=== PATIENT | female | born 1960 | race Caucasian/White ===

== ENCOUNTER → 2023-04-06 13:45 | Outpatient (REF) | payer BC, SELFPAY ==
[2023-04-06 14:27] LABS: % Basophils 1.9 % (0-2); % Eosinophils 2.9 % (0-6); % Immature Granulocytes 0.3 % (0-0.5); % Lymphocytes 42.4 % (20.5-51.1); % Monocytes 8.8 % (1.7-9.3); % Neutrophils 43.7 % (42.2-75.2); Absolute Basophils 0.1 10^3/uL (0-0.2); Absolute Eosinophils 0.2 10^3/uL (0-0.7); Absolute Lymphocytes 2.5 10^3/uL (1.2-3.4); Absolute Monocytes 0.5 10^3/uL (0.1-0.6); Absolute Neutrophils 2.5 10^3/uL (1.4-6.5); Hematocrit 36.4 % (37.0-47.0); Mean Corpuscular Hgb 32.3 pg (27.0-31.0); Mean Corpuscular Volume 98.1 fL (81.0-99.0); Mean Platelet Volume 10.1 fL (7.4-10.4); Nucleated Red Blood Cells % 0 %; Platelet Count 332 10^3/uL (130-400); Red Blood Cell Count 3.71 10^6/uL (4.20-5.40); Red Cell Dist. Width 12.7 % (11.5-14.5); White Blood Cell Count 5.8 10^3/uL (4.8-10.8)
== END ==
LOC: REG 13:45
PROVIDERS: ATTENDING PHYSICIAN Surgery; FAMILY PHYSICIAN Internal Medicine
DX: K35.201 Acute appendicitis with generalized peritonitis, with perforation, without abscess (principal); R10.32 Left lower quadrant pain
CPT/HCPCS: 36415; 85025

== ENCOUNTER 2023-04-08 09:33 | Emergency (ER) | payer BC, SELFPAY ==
[2023-04-08 09:35] VITALS: BP 146/97
[2023-04-08 09:46] VITALS: BMI 22.9
[2023-04-08 10:00] VITALS: BP 147/89
--- NOTE | 2023-04-08 10:04 | ED.GENMED ---
History of Present Illness
General
Chief Complaint: Abdominal Pain
Time Seen by Provider: 04/08/23 09:40
Travel History
Have you had any contact with someone who has COVID-19?: No
Do you have any symptoms of coronavirus? Fever > 100 degrees, chills, cough, shortness of breath, sore throat, loss of taste or smell, muscle aches, or headache?: No
History of Present Illness
History of Present Illness:
62-year-old female presents the emergency department with a complaint of left lower quadrant abdominal pain and bloody stools over the past 2 to 3 days. Patient is status post lap appendectomy with perforated appendicitis with feculent peritonitis
on March 15, was treated with antibiotics, did have indwelling WILLIE drain at discharge. Saw her surgeon earlier this week due to increasing pain and was advised to get an outpatient CT scan however she was unable to schedule this. She reports
fevers or chills, denies any nausea or vomiting. Has had blood-tinged stools on several occasions for the past few days with increasing left lower quadrant pain.
Past History
Past History
ED Past Medical History: Other (N/A)
Social History
Tobacco: Non-smoker
Living: with family
Employment: Employed
Review of Systems
Review of Systems
Allergies reviewed?: Yes
All Other Systems: ROS reviewed and negative except as documented in HPI and ROS
Phy Exam
Physical Exam
Physical Exam:
GEN: Well appearing, NAD, WDWN
HEENT: Oral mucosa moist, no scleral icterus
Cardiac: Regular rate
Lung: No respiratory distress, no tachypnea
Abdomen: Laparoscopic incision sites are well-healed with no dehiscence or erythema. Abdomen is diffusely soft however tender to all 4 quadrants, no rigidity
MSK: No gross deformity or injuries
Skin: Good color, no pallor or jaundice, no rashes
Neuro: AO x3, moves all extremities freely
Psych: Calm, cooperative
Course
Orders/Labs/Results
Orders:
Orders
04/08/23 10:03
CT Abd/Pel (IV only)-DH only Urgent
Comment:
Reason For Exam: LLQ pain, recent perf appy
Acetaminophen 1000MG/100Ml [Ofirmev] 1,000 mg in 100 ml IV ONCE
Acetaminophen IV Indication:: ED Narcotic Naive Pt-ONCE
04/08/23 10:10
Complete Blood Count/With Diff Urgent
Comprehensive Metabolic Panel Urgent
Lactic Acid Urgent
Prothrombin Time Urgent
Blood Culture Q30M
TAMRA Source: Blood/Venous
Specimen Description:
Blood Culture Q30M
TAMRA Source: Blood/Venous
Specimen Description:
04/08/23 12:27
Urinalysis Reflex To Culture Urgent
Date Specimen was Collected: 04/08/23
Time Specimen was Collected: 12:22
Abnormal Lab Results
04/08/23
10:10
RBC 3.75 L 10^6/uL
(4.20-5.40)
Hct 36.4 L %
(37.0-47.0)
MCH 32.3 H pg
(27.0-31.0)
MPV 10.7 H fL
(7.4-10.4)
Chloride 110 H mmol/L
(98-107)
BUN 18 H mg/dl
(7-17)
04/08/23 10:10
04/08/23 10:10
Vital Signs
Initial and Last Documented VS:
Initial Vital Signs
Temp Pulse Resp BP Pulse Ox
98.4 F 94 18 146/97 99
04/08/23 09:35 04/08/23 09:35 04/08/23 09:35 04/08/23 09:35 04/08/23 09:35
Last Documented Vital Signs
Temp Pulse Resp BP Pulse Ox
98.4 F 94 18 119/86 98
04/08/23 09:35 04/08/23 09:35 04/08/23 09:35 04/08/23 12:00 04/08/23 13:30
MDM/Problems Addressed
MDM/Problems Addressed:
Unclear cause of the patient's pain. I did have the patient seen by her general surgeon who recommends we start a 10-day course of Augmentin due to some degree of inflammatory process developing on CT scan. Surgery will follow-up in 10 days for
reevaluation, ED return parameters discussed
*Critical Care Note
Total Time (30-74mins, 75-104mins- exclusive of procedures): Not Applicable
Update Note
Update Note:
1317: Dr Abraham, gen surg, at bedside to eval pt
ED Attending Note
-
Portions of this chart may have been created with voice recognition software.� Occasional wrong word or��sound alike� substitutions may have occurred due to the inherent limitations of voice recognition software.
Discharge Plan
Departure
Patient Disposition: Home (Routine Discharge)
Date of Disposition: 04/08/23
Time of Disposition: 13:48
Patient with high blood pressure during this ER visit?: No
Discharge Problem:
Abdominal pain
Instructions: Abdominal Pain
Prescriptions:
New
amoxicillin-pot clavulanate 875-125 mg tablet
1 tab PO BID 10 Days Qty: 20 0RF
fluconazole 150 mg tablet
150 mg PO Q3D Qty: 3 0RF
No Action
cyanocobalamin (vitamin B-12) 100 MCG tablet
100 mcg PO DAILY
albuterol sulfate 2.5 MG/3 ML solution for nebulization
2.5 mg inhalation R Q4HPRN PRN (Reason: wheezing)
topiramate 25 MG tablet
75 mg PO HS
magnesium 250 MG tablet
500 mg PO BID
celecoxib [Celebrex] 200 mg Capsule
200 mg PO BID
clonazepam 0.5 mg Tablet
0.5 mg PO HS
Patient Comments:
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
melatonin 3 mg Tablet
6 mg PO HS
hydroxychloroquine [Plaquenil] 200 mg Tablet
300 mg PO DAILY
albuterol sulfate [ProAir HFA] 90 mcg/actuation Hfa Aerosol Inhaler
2 puff INHALATION R Q6HPRN PRN (Reason: sob)
turmeric 400 mg Capsule
400 mg PO BID
Nurtec ODT 75 mg Tablet,Disintegrating
75 mg PO Q48H
okhvipzdrz-agowjdx-xkeqnlan 50-325-40 mg Capsule
1 cap PO DAILYPRN PRN (Reason: mirgraine)
Patient Comments:
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
levothyroxine [Synthroid] 112 mcg Tablet
112 mcg PO MOTUWETHFRSA
Rx Instructions:
03/15/23- PATIENT MUST USE HER OWN BRAND AND HAS IT WITH HER!!
tramadol 50 mg tablet
25 - 50 mg PO Q6HPRN PRN (Reason: severe pain/breakthrough pain) Qty: 10 0RF
amoxicillin-pot clavulanate [amoxicillin-pot clavulanate] 875-125 mg tablet
1 tab PO Q12 Qty: 11 0RF
tranexamic acid 650 mg Tablet
1,300 mg PO Q8H Qty: 1 0RF
Rx Instructions:
take as per your assembler arranger instructions
Referrals:
Cheri Zacarias MD [Family Provider] -
Vicente Abraham MD [Active] -
Interventions
Interventions:
*Risk Screen - Suicide Last Done: 04/08/23 09:35
*General Assessment Last Done: 04/08/23 09:35
*Neglect/Abuse Screening Last Done: 04/08/23 09:35
ED- Fall Risk Assessment Last Done: 04/08/23 09:46
*ED COVID-19 Vaccine History Last Done: 04/08/23 09:46
*Nursing Disposition Last Done: 04/08/23 14:09
VK-Rtwmds-Jpplwxclhf Assessment Last Done: 04/08/23 09:46
ED- Cardiac Assessment Last Done: 04/08/23 09:46
ED- Pulmonary Assessment Last Done: 04/08/23 09:46
Discharge Date and Time
Discharge Date/Time: 04/08/23 14:09
[2023-04-08 10:26] LABS: % Eosinophils 2.9 % (0-6); % Immature Granulocytes 0.4 % (0-0.5); % Lymphocytes 42.3 % (20.5-51.1); % Monocytes 8.4 % (1.7-9.3); Absolute Basophils 0.1 10^3/uL (0-0.2); Absolute Eosinophils 0.2 10^3/uL (0-0.7); Absolute Lymphocytes 2.3 10^3/uL (1.2-3.4); Absolute Monocytes 0.5 10^3/uL (0.1-0.6); Absolute Neutrophils 2.4 10^3/uL (1.4-6.5); Hematocrit 36.4 % (37.0-47.0); Hemoglobin 12.1 g/dL (12.0-16.0); Mean Corp Hgb Conc. 33.2 g/dL (33.0-37.0); Mean Corpuscular Hgb 32.3 pg (27.0-31.0); Mean Corpuscular Volume 97.1 fL (81.0-99.0); Mean Platelet Volume 10.7 fL (7.4-10.4); Nucleated Red Blood Cells % 0 %; Platelet Count 291 10^3/uL (130-400); Red Blood Cell Count 3.75 10^6/uL (4.20-5.40); Red Cell Dist. Width 12.5 % (11.5-14.5); White Blood Cell Count 5.5 10^3/uL (4.8-10.8)
[2023-04-08] MEDS: OFIRMEV 100 IV (10:30)
[2023-04-08 10:39] LABS: INR 1.02; PT 13.5 Sec (11.4-14.6)
[2023-04-08 10:50] LABS: ALT (SGPT) 28 U/L (0-35); AST (SGOT) 27 U/L (14-36); Albumin 4.1 g/dl (3.5-5.0); Alkaline Phosphatase 67 U/L (38-126); Blood Urea Nitrogen 18 mg/dl (7-17); Calcium 9.4 mg/dl (8.4-10.2); Carbon Dioxide 22 mmol/L (22-30); Chloride 110 mmol/L (98-107); Estimated Creatinine Clearance 65 ml/min; Glucose 88 mg/dl (70-99); Potassium 4.2 mmol/L (3.5-5.1); Sodium 140 mmol/L (135-145); Total Bilirubin 0.6 mg/dl (0.2-1.3); eGFR > 60.00
[2023-04-08 11:15] VITALS: BP 136/84
[2023-04-08 12:00] VITALS: BP 119/86
[2023-04-08 13:18] LABS: Urine Albumin Negative (Neg - Trace); Urine Bilirubin Negative (Negative); Urine Character Clear (Clear); Urine Color Yellow; Urine Glucose Negative (Negative); Urine Ketone Negative (Negative); Urine Leukocyte Negative (Negative); Urine Nitrite Negative (Negative); Urine Occult Blood Negative (Negative); Urine Specific Gravity 1.005 (<1.030); Urine Urobilinogen Negative (Neg - 1+)
--- NOTE | 2023-04-08 16:19 | CON.GS ---
Consultation
-
Date/Time Consultation Requested: 04/08/2023 11 AM
Date/Time Consultation Performed: 04/08/2023 1 PM
Requesting Provider: Emergency department
Performing Provider: Dr. Abraham
Reason for Consultation: Abdominal pain
Medical History
-
Chief Complaint: Left lower quadrant abdominal pain, bright red blood per rectum
History of Present Illness:
This is a 62-year-old female status post laparoscopic appendectomy for perforated appendicitis and local feculent peritonitis on 03/15/2023. She was discharged on 03/19/2023 without a drain and a course of antibiotics for 10 days which she completed.
Overall she said that she was doing quite well until she began having left lower quadrant pain this past Wednesday. She actually saw me in clinic this past Wednesday and overall was looking okay. She denied any fevers or chills. No concerns at her
wound sites, and she was only mildly tender to palpation in the left lower quadrant. Given her history there is certainly risk of an intra-abdominal abscess so we plan to get a CT scan for her unfortunately over the past few days she developed some
bright red blood per rectum and given that her left lower quadrant pain had not changed in character she presented to emergency department for further evaluation. Here her vital signs are stable, her lab work is unremarkable And a CT scan of the
abdomen demonstrated no focal collection though there was some mild inflammation noted in the right lower and left lower quadrants which could be simple postsurgical changes versus an evolving infection. With regards to her bright red blood per
rectum, she denies any previous episodes. She does not have any history of hemorrhoids. She does endorse and has pictures of fairly normal-appearing brown stool with red streaks on it concerning for hemorrhoidal bleed.
Past Medical History
Past Medical History: Reviewed & Noncontributory
Past Surgical History: Appendectomy
Social History
Tobacco: Non-Smoker
Family History
Family History: Reviewed & Not Pertinent
Allergies / Home Medications
Allergy/AdvReac Type Severity Reaction Status Date / Time
adalimumab [From Humira] Allergy Hives Verified 04/08/23 09:34
adhesive tape Allergy skin Verified 04/08/23 09:34
symptoms -
redness,etc.
aspirin Allergy history of Verified 04/08/23 09:34
stomach
ulcers
cat dander Allergy Unknown Verified 04/08/23 09:34
gluten Allergy Diarrhea Verified 04/08/23 09:34
house dust mite Allergy Unknown Verified 04/08/23 09:34
lactose Allergy stomach Verified 04/08/23 09:34
problems
mold Allergy Unknown Verified 04/08/23 09:34
morphine Allergy nausea,vomi Verified 04/08/23 09:34
ting,pruiti
s
NSAIDS (Non-Steroidal Allergy history of Verified 04/08/23 09:34
Anti-Inflamma stomach
ulcers
Salicylates * Allergy history of Verified 04/08/23 09:34
stomach
ulcers
scallops Allergy Unknown Verified 04/08/23 09:34
scopolamine Allergy Hives Verified 04/08/23 09:34
tetracycline Allergy Hives Verified 04/08/23 09:34
tree and shrub pollen Allergy Unknown Verified 04/08/23 09:34
wheat Allergy Unknown Verified 04/08/23 09:34
opiods sensitivity Allergy nausea/vomiting;itching Uncoded 03/15/23 07:56
(can take
if also
given an
antiemeti
Medication Instructions Recorded Confirmed Type
albuterol sulfate 2.5 mg/3 mL 2.5 mg inhalation R Q4HPRN PRN 04/20/15 03/15/23 History
(0.083 %) solution for nebulization wheezing
cyanocobalamin (vitamin B-12) 100 100 mcg PO DAILY Supplement 04/20/15 03/15/23 History
mcg tablet
magnesium 250 mg tablet 500 mg PO BID Supplement 04/20/15 03/15/23 History
topiramate 25 mg tablet 75 mg PO HS Mental Health/Anxiety 04/20/15 03/15/23 History
albuterol sulfate 90 mcg/actuation 2 puff inhalation R Q6HPRN PRN sob 03/15/23 03/15/23 History
aerosol inhaler (ProAir HFA)
grtlhbiiwl-heupamt-hjeuaxse 50 1 cap PO DAILYPRN PRN mirgraine 03/15/23 03/15/23 History
mg-325 mg-40 mg capsule
celecoxib 200 mg capsule (Celebrex) 200 mg PO BID Anti-Inflammatory 03/15/23 03/15/23 History
clonazepam 0.5 mg tablet 0.5 mg PO HS Sleep 03/15/23 03/15/23 History
hydroxychloroquine 200 mg tablet 300 mg PO DAILY Autoimmune Disorder 03/15/23 03/15/23 History
(Plaquenil)
levothyroxine 112 mcg tablet 112 mcg PO MOTUWETHFRSA Thyroid 03/15/23 03/15/23 History
(Synthroid)
melatonin 3 mg tablet 6 mg PO HS Sleep 03/15/23 03/15/23 History
rimegepant 75 mg disintegrating 75 mg PO Q48H Migraine 03/15/23 03/15/23 History
tablet (Nurtec ODT)
turmeric 400 mg capsule 400 mg PO BID Supplement 03/15/23 03/15/23 History
amoxicillin 875 mg-potassium 1 tab PO Q12 antibiotic #11 tabs 03/19/23 Rx
clavulanate 125 mg tablet
tramadol 50 mg tablet 25 - 50 mg PO Q6HPRN PRN severe 03/19/23 Rx
pain/breakthrough pain #10 tabs
tranexamic acid 650 mg tablet 1,300 mg PO Q8H #1 tab 03/19/23 Rx
amoxicillin 875 mg-potassium 1 tab PO BID 10 days #20 tabs 04/08/23 Rx
clavulanate 125 mg tablet
fluconazole 150 mg tablet 150 mg PO Q3D 3 doses #3 tabs 04/08/23 Rx
Review of Systems
-
All other systems: Negative unless noted
A 10 point review of systems was completed, and was negative except as per HPI.
Physical Exam
Vital Signs
Temp Pulse Resp BP Pulse Ox
98.4 F 94 18 119/86 98
04/08/23 09:35 04/08/23 09:35 04/08/23 09:35 04/08/23 12:00 04/08/23 13:30
04/07/23 04/08/23 04/09/23
06:59 06:59 06:59
Actual Weight 60.6 kg
Body Mass Index (BMI) 22.9
Lab Results
04/08/23 10:10
04/08/23 10:10
WBC 5.5 10^3/uL (4.8-10.8) 04/08/23 10:10
Hgb 12.1 g/dL (12.0-16.0) 04/08/23 10:10
Hct 36.4 % (37.0-47.0) L 04/08/23 10:10
Plt Count 291 10^3/uL (130-400) 04/08/23 10:10
Abs Immat Gran (auto) 0.0 10^3/uL (0-0.05) 04/08/23 10:10
Neutrophils % 44.0 % (42.2-75.2) 04/08/23 10:10
Physical Exam
General: Well Developed
HEENT: Normocephalic
Respiratory: Non Labored Respirations
GI: Soft, Non Distended and Tender (Minimally tender in the left lower quadrant.)
Rectal: Brown and Hemorrhoids (1 small, nonbleeding hemorrhoid was identified.)
Neuro: Awake, Alert and Oriented
Psych: Calm
Data Reviewed
-
CT Scan: Image Personally Visualized and interpreted, Report Reviewed by me, Discussed with Physician and Discussed with Patient
Labs: Labs Reviewed by me, Discussed with Physician and Discussed with Patient
Total Time Spent with Patient (in minutes): 25
Assessment / Plan
-
This is a 62-year-old female status post laparoscopic appendectomy on 03/15/2023 for perforated appendicitis with purulent peritonitis and local feculent peritonitis who initially was doing well but now has left lower quadrant pain. Vitals and exam
reassuring as is her blood work. CT scan also fairly unremarkable though there is some inflammation noted in the bilateral lower quadrants which could be normal postoperative changes versus an evolving infection.
Plan
Would recommend a short course of antibiotics 10 days Augmentin plus Diflucan as she had a bad yeast infection after her first course of antibiotics.
P.o. hydration, stool softeners for her hemorrhoids. No active bleeding currently, and hemoglobin stable. She should get a repeat colonoscopy in the near future.
I will have her follow-up with me in 1 to 2 weeks after her antibiotic course.
Plan of care reviewed with patient and friend who are both agreeable to the plan described above.
No acute general surgery intervention warranted, dispo per ED.
== END 2023-04-08 14:09 | disposition home or self-care (01) ==
LOC: EMR 09:33
PROVIDERS: Physician Assistant; EMERGENCY PHYSICIAN Student in an Organized Health Care Education/Training Program; FAMILY PHYSICIAN Internal Medicine
DX: R10.32 Left lower quadrant pain (principal); K92.1 Melena
CPT/HCPCS: 99284; 74177; 80053; 81003; 83605; 85025; 85610; 87040; Q9967

== ENCOUNTER → 2023-04-21 09:49 | Outpatient (REF) | payer BC, SELFPAY | LOC: HWRAD 09:49 | PROVIDERS: ATTENDING PHYSICIAN Surgery; FAMILY PHYSICIAN Internal Medicine | DX: R10.32 Left lower quadrant pain (principal); K35.201 Acute appendicitis with generalized peritonitis, with perforation, without abscess | CPT/HCPCS: 74177; Q9967 ==

== ENCOUNTER → 2023-05-07 11:11 | Outpatient (REF) | payer BC, SELFPAY ==
[2023-05-07 11:55] LABS: % Basophils 1.9 % (0-2); % Eosinophils 3.8 % (0-6); % Immature Granulocytes 0.2 % (0-0.5); % Lymphocytes 45.2 % (20.5-51.1); % Monocytes 7.4 % (1.7-9.3); % Neutrophils 41.5 % (42.2-75.2); Absolute Basophils 0.1 10^3/uL (0-0.2); Absolute Eosinophils 0.2 10^3/uL (0-0.7); Absolute Lymphocytes 2.4 10^3/uL (1.2-3.4); Absolute Monocytes 0.4 10^3/uL (0.1-0.6); Absolute Neutrophils 2.2 10^3/uL (1.4-6.5); Hematocrit 35.8 % (37.0-47.0); Hemoglobin 11.7 g/dL (12.0-16.0); Mean Corp Hgb Conc. 32.7 g/dL (33.0-37.0); Mean Corpuscular Hgb 31.7 pg (27.0-31.0); Mean Platelet Volume 10.5 fL (7.4-10.4); Nucleated Red Blood Cells % 0 %; Platelet Count 245 10^3/uL (130-400); Red Blood Cell Count 3.69 10^6/uL (4.20-5.40); Red Cell Dist. Width 11.8 % (11.5-14.5); White Blood Cell Count 5.3 10^3/uL (4.8-10.8)
[2023-05-07 12:31] LABS: ALT (SGPT) 20 U/L (0-35); AST (SGOT) 21 U/L (14-36); Albumin 3.9 g/dl (3.5-5.0); Alkaline Phosphatase 54 U/L (38-126); Blood Urea Nitrogen 30 mg/dl (7-17); Calcium 9.4 mg/dl (8.4-10.2); Carbon Dioxide 25 mmol/L (22-30); Chloride 105 mmol/L (98-107); Glucose 95 mg/dl (70-99); HDL Cholesterol 60 mg/dl; LDL Cholesterol, Calculated 137 mg/dl; Sodium 140 mmol/L (135-145); Total Bilirubin 0.3 mg/dl (0.2-1.3); Total Cholesterol 214 mg/dl (50-199); Total Protein 6.7 g/dl (6.3-8.2); Triglyceride 86 mg/dl (10-149); Very Low Density Lipoprotein 17 mg/dl (0-30); eGFR > 60.00
[2023-05-07 13:15] LABS: Free T4 1.48 ng/dl (0.78-2.19)
[2023-05-07 13:29] LABS: TSH 1.78 uIU/ml (0.47-4.68)
== END ==
LOC: REG 11:11
PROVIDERS: ATTENDING PHYSICIAN Physician Assistant Medical; OTHER PHYSICIAN Internal Medicine Endocrinology, Diabetes & Metabolism; OTHER PHYSICIAN Internal Medicine Hematology; OTHER PHYSICIAN Surgery
DX: Z00.00 Encounter for general adult medical examination without abnormal findings (principal); E03.9 Hypothyroidism, unspecified
CPT/HCPCS: 36415; 80053; 80061; 84439; 84443; 85025

== ENCOUNTER 2023-06-03 13:59 | Emergency (ER) | payer BC, SELFPAY ==
[2023-06-03 14:05] VITALS: BP 113/94
[2023-06-03] MEDS: TORADOL 30 MG IV (16:17)
[2023-06-03 16:26] LABS: Urine Albumin Negative (Neg - Trace); Urine Bilirubin Negative (Negative); Urine Character Clear (Clear); Urine Color Yellow; Urine Glucose Negative (Negative); Urine Ketone 1+ (Negative); Urine Leukocyte Negative (Negative); Urine Nitrite Negative (Negative); Urine Occult Blood Negative (Negative); Urine Specific Gravity 1.025 (<1.030); Urine Urobilinogen Negative (Neg - 1+)
[2023-06-03 16:28] LABS: % Basophils 1.3 % (0-2); % Eosinophils 1.8 % (0-6); % Immature Granulocytes 0.2 % (0-0.5); % Lymphocytes 39.9 % (20.5-51.1); % Monocytes 7.1 % (1.7-9.3); % Neutrophils 49.7 % (42.2-75.2); Absolute Basophils 0.1 10^3/uL (0-0.2); Absolute Eosinophils 0.1 10^3/uL (0-0.7); Absolute Lymphocytes 2.4 10^3/uL (1.2-3.4); Absolute Monocytes 0.4 10^3/uL (0.1-0.6); Hematocrit 39.7 % (37.0-47.0); Hemoglobin 13.2 g/dL (12.0-16.0); Mean Corp Hgb Conc. 33.2 g/dL (33.0-37.0); Mean Corpuscular Hgb 31.9 pg (27.0-31.0); Mean Corpuscular Volume 95.9 fL (81.0-99.0); Mean Platelet Volume 10.1 fL (7.4-10.4); Nucleated Red Blood Cells % 0 %; Platelet Count 265 10^3/uL (130-400); Red Blood Cell Count 4.14 10^6/uL (4.20-5.40); Red Cell Dist. Width 11.9 % (11.5-14.5); White Blood Cell Count 6.1 10^3/uL (4.8-10.8)
[2023-06-03 16:39] LABS: ALT (SGPT) 23 U/L (0-35); AST (SGOT) 21 U/L (14-36); Albumin 4.5 g/dl (3.5-5.0); Alkaline Phosphatase 63 U/L (38-126); Blood Urea Nitrogen 25 mg/dl (7-17); Carbon Dioxide 25 mmol/L (22-30); Chloride 106 mmol/L (98-107); Glucose 88 mg/dl (70-99); Potassium 3.9 mmol/L (3.5-5.1); Sodium 141 mmol/L (135-145); Total Bilirubin 0.5 mg/dl (0.2-1.3); Total Protein 7.6 g/dl (6.3-8.2); eGFR > 60.00
--- NOTE | 2023-06-03 16:47 | ED.GENMED ---
History of Present Illness
General
Chief Complaint: Abdominal Pain
Source: patient and records
Time Seen by Provider: 06/03/23 15:48
Travel History
Have you had any contact with someone who has COVID-19?: No
Do you have any symptoms of coronavirus? Fever > 100 degrees, chills, cough, shortness of breath, sore throat, loss of taste or smell, muscle aches, or headache?: No
History of Present Illness
History of Present Illness:
70-year-old female with past medical history of mitral regurgitation, previous breast cancer, status post appendiceal rupture status post appendectomy in March of this year presenting to the emergency department for evaluation of lower abdominal
pain that started over the last 3 days described to be gradually worsening in nature, initially diffuse but now worse in the left lower part of her abdomen, mildly decreased p.o. intake to both solids and liquids, unrelieved with Tylenol and
zcbb-nbs-bekmhti stool softener, sent to the emergency department by primary care physician after she had been today. Patient denies any fevers, chills, rigors, nausea, vomiting, urinary symptoms or bowel changes. States this feels different than
her previous abdominal pains in the past. She does note a visit to this ER back in April for abdominal pain with bloody stools and states that was fully resolved following course of antibiotics.
Past History
Past History
ED Past Medical History: Asthma, Cancer, GERD, Valvular disease, Hypothyroidism and Other (Migraines)
ED Past Surgical History: Appendectomy, and Other
Social History
Tobacco: Non-smoker
Alcohol: None
Drug: None
Personal: Single
Living: with family
Employment: Employed
Review of Systems
Review of Systems
All Other Systems: ROS reviewed and negative except as documented in HPI and ROS
Phy Exam
Physical Exam
Physical Exam:
GENERAL: Alert , in no apparent distress
EYE: clear conjunctiva b/l
HEAD: NCAT
ENT: mmm.
CARDIAC: Regular rate and rhythm .
LUNGS: Clear breath sounds bilaterally, no acute respiratory distress, no wheezes/rales/rhonchi
ABDOMEN: Soft, diffusely tender, no r/g, no cvat, negative Truong sign
NEUROLOGICAL: Alert and oriented
SKIN: Warm and dry, skin intact.
MUSCULOSKELETAL: well perfused.
PSYCH: Normal and appropriate interaction.
Scores
Heart Failure Risk
Heart Failure Risk Score: Not Applicable
Heart Score for Chest Pain Patients
STEMI patient?: Not applicable
Withdrawal Assessment of Alcohol
Withdrawal Assessment Completed?: Not applicable
Course
Orders/Labs/Results
Orders:
Orders
06/03/23 15:56
CT Abd/pelvis W Iv Cont Urgent
Comment:
Reason For Exam: diffuse lower abd pain, hx of appy
Ketorolac [Toradol] 30 mg IV NOW STA
06/03/23 16:12
Complete Blood Count/With Diff Urgent
Comprehensive Metabolic Panel Urgent
Lipase Urgent
Urinalysis Reflex To Culture Urgent
Date Specimen was Collected: 06/03/23
Time Specimen was Collected: 16:02
Abnormal Lab Results
06/03/23
16:12
RBC 4.14 L 10^6/uL
(4.20-5.40)
MCH 31.9 H pg
(27.0-31.0)
BUN 25 H mg/dl
(7-17)
Urine Ketones 1+ A
(Negative)
06/03/23 16:12
06/03/23 16:12
Vital Signs
Initial and Last Documented VS:
Initial Vital Signs
Temp Pulse Resp BP Pulse Ox
98.7 F 94 18 113/94 100
06/03/23 14:05 06/03/23 14:05 06/03/23 14:05 06/03/23 14:05 06/03/23 14:05
Last Documented Vital Signs
Temp Pulse Resp BP Pulse Ox
98.7 F 94 18 113/94 100
06/03/23 14:05 06/03/23 14:05 06/03/23 14:05 06/03/23 14:05 06/03/23 14:05
MDM/Problems Addressed
Differential Diagnosis Includes:
Diverticulitis, diverticulosis, pancreatitis, renal/ureteral colic, less concern for bowel obstruction
MDM/Problems Addressed:
62-year-old female sent to the emergency department by primary care provider for worsening abdominal pain, now worse in the left lower quadrant. Patient notes a history of colonoscopy but no previous history of diverticulosis found. Pain seem to
be more pronounced within the lower part of the abdomen, left greater than right. Given patient's history will obtain a CT of the abdomen pelvis. She has had 3 [address] scans done this year already with the first showing she had appendicitis. CT done
in April was without any acute complications. Will treat with Toradol initially. Reassessment following.
*Radiology
Radiology exam reviewed: radiology read reviewed
*Pulse Oximetry
Patient hypoxic: no
*Critical Care Note
Total Time (30-74mins, 75-104mins- exclusive of procedures): Not Applicable
Data Reviewed
Review of Other/Old Records Reveals: Labs, Records and Radiology Studies
Source: patient and records
Patient Management
Discussion with other providers: PCP
Escalation/DeEscalation of care consider admission/obs:
Patient CT scan shows questionable enteritis within the central and left pelvic region. It could certainly be a cause of her symptoms. She is afebrile, no leukocytosis and labs are otherwise unremarkable. Patient has been on 2 separate rounds of
antibiotics within the last 3 months or so. Overall I discussed with patient that given the lack of abnormal findings on her CT combined with her unremarkable lab work I did not feel as if she needed a third round of antibiotics and patient agreed
with this. I notified patient's primary care provider via [employer] as she had sent the patient to be further evaluated. Patient will follow-up with her primary care provider as well as her surgeon. She is aware of return precautions to the
emergency department.
ED Attending Note
-
Portions of this chart may have been created with voice recognition software.� Occasional wrong word or��sound alike� substitutions may have occurred due to the inherent limitations of voice recognition software.
Discharge Plan
Departure
Patient Disposition: Home (Routine Discharge)
Date of Disposition: 06/03/23
Time of Disposition: 18:37
Patient with high blood pressure during this ER visit?: No
Discharge Problem:
Abdominal pain
Instructions: Abdominal Pain
Prescriptions:
No Action
cyanocobalamin (vitamin B-12) 100 MCG tablet
100 mcg PO DAILY
albuterol sulfate 2.5 MG/3 ML solution for nebulization
2.5 mg inhalation R Q4HPRN PRN (Reason: wheezing)
topiramate 25 MG tablet
75 mg PO HS
magnesium 250 MG tablet
500 mg PO BID
celecoxib [Celebrex] 200 mg Capsule
200 mg PO BID
clonazepam 0.5 mg Tablet
0.5 mg PO HS
Patient Comments:
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
melatonin 3 mg Tablet
6 mg PO HS
hydroxychloroquine [Plaquenil] 200 mg Tablet
300 mg PO DAILY
albuterol sulfate [ProAir HFA] 90 mcg/actuation Hfa Aerosol Inhaler
2 puff INHALATION R Q6HPRN PRN (Reason: sob)
turmeric 400 mg Capsule
400 mg PO BID
Nurtec ODT 75 mg Tablet,Disintegrating
75 mg PO Q48H
ycutbcyrox-awvgbxl-cftxgvyp 50-325-40 mg Capsule
1 cap PO DAILYPRN PRN (Reason: mirgraine)
Patient Comments:
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
levothyroxine [Synthroid] 112 mcg Tablet
112 mcg PO MOTUWETHFRSA
Rx Instructions:
03/15/23- PATIENT MUST USE HER OWN BRAND AND HAS IT WITH HER!!
tramadol 50 mg tablet
25 - 50 mg PO Q6HPRN PRN (Reason: severe pain/breakthrough pain) Qty: 10 0RF
amoxicillin-pot clavulanate [amoxicillin-pot clavulanate] 875-125 mg tablet
1 tab PO Q12 Qty: 11 0RF
tranexamic acid 650 mg Tablet
1,300 mg PO Q8H Qty: 1 0RF
Rx Instructions:
take as per your technical training coordinator instructions
amoxicillin-pot clavulanate 875-125 mg tablet
1 tab PO BID 10 Days Qty: 20 0RF
fluconazole 150 mg tablet
150 mg PO Q3D Qty: 3 0RF
Referrals:
Cheri Zacarias MD [Family Provider] -
Interventions
Interventions:
*Risk Screen - Suicide Last Done: 06/03/23 14:05
*General Assessment Last Done: 06/03/23 14:05
*Neglect/Abuse Screening Last Done: 06/03/23 14:05
*ED COVID-19 Vaccine History Last Done: 06/03/23 16:07
OT-Wsggib-Numaewsfut Assessment Last Done: 06/03/23 16:07
Discharge Date and Time
Print Language: NAMIBIAN
[2023-06-03 16:52] LABS: Lipase 186 U/L (23-300)
[2023-06-03 18:50] VITALS: BP 129/77
== END 2023-06-03 18:52 | disposition home or self-care (01) ==
LOC: EMR 13:59
PROVIDERS: Physician Assistant Medical; EMERGENCY PHYSICIAN Emergency Medicine; FAMILY PHYSICIAN Internal Medicine
DX: R10.32 Left lower quadrant pain (principal); I34.0 Nonrheumatic mitral (valve) insufficiency
CPT/HCPCS: 99285; 96374; 74177; 80053; 81003; 83690; 85025; Q9967

== ENCOUNTER → 2023-06-18 13:54 | Outpatient (REF) | payer BC, SELFPAY ==
[2023-06-18 14:26] LABS: Urine Albumin Negative (Neg - Trace); Urine Bilirubin Negative (Negative); Urine Character Clear (Clear); Urine Color Yellow; Urine Glucose Negative (Negative); Urine Ketone Negative (Negative); Urine Leukocyte Trace (Negative); Urine Nitrite Negative (Negative); Urine Occult Blood Negative (Negative); Urine Urobilinogen Negative (Neg - 1+)
[2023-06-18 14:29] LABS: % Basophils 1.6 % (0-2); % Eosinophils 3.1 % (0-6); % Immature Granulocytes 0.3 % (0-0.5); % Lymphocytes 47.5 % (20.5-51.1); % Monocytes 8.2 % (1.7-9.3); % Neutrophils 39.3 % (42.2-75.2); Absolute Basophils 0.1 10^3/uL (0-0.2); Absolute Eosinophils 0.2 10^3/uL (0-0.7); Absolute Lymphocytes 2.9 10^3/uL (1.2-3.4); Absolute Monocytes 0.5 10^3/uL (0.1-0.6); Absolute Neutrophils 2.4 10^3/uL (1.4-6.5); Hematocrit 40.6 % (37.0-47.0); Mean Corpuscular Hgb 31.8 pg (27.0-31.0); Mean Corpuscular Volume 99.3 fL (81.0-99.0); Mean Platelet Volume 10.1 fL (7.4-10.4); Nucleated Red Blood Cells % 0 %; Platelet Count 246 10^3/uL (130-400); Red Blood Cell Count 4.09 10^6/uL (4.20-5.40); Red Cell Dist. Width 11.9 % (11.5-14.5); White Blood Cell Count 6.1 10^3/uL (4.8-10.8)
[2023-06-18 14:39] LABS: Erythrocyte Sed Rate 12 mm/hour (0-20)
[2023-06-18 14:41] LABS: Urine Bacteria Few (Negative); Urine Red Blood Cell 0-2 /HPF (0-2); Urine Squamous Cell >30 /LPF (Few); Urine White Cell 0-2 /HPF (0-5)
[2023-06-18 15:00] LABS: ALT (SGPT) 34 U/L (0-35); AST (SGOT) 32 U/L (14-36); Albumin 4.5 g/dl (3.5-5.0); Alkaline Phosphatase 57 U/L (38-126); Amylase 56 U/L (30-110); Blood Urea Nitrogen 20 mg/dl (7-17); Calcium 9.5 mg/dl (8.4-10.2); Carbon Dioxide 26 mmol/L (22-30); Chloride 107 mmol/L (98-107); GGTP 43 U/L (12-43); Glucose 89 mg/dl (70-99); Lipase 155 U/L (23-300); Potassium 4.1 mmol/L (3.5-5.1); Sodium 138 mmol/L (135-145); Total Bilirubin 0.4 mg/dl (0.2-1.3); Total Protein 7.4 g/dl (6.3-8.2); eGFR > 60.00
== END ==
LOC: REG 13:54
PROVIDERS: ATTENDING PHYSICIAN Physician Assistant Medical
DX: R10.32 Left lower quadrant pain (principal)
CPT/HCPCS: 36415; 80053; 81003; 81015; 82150; 82977; 83690; 85025; 85652

== ENCOUNTER → 2023-07-22 10:46 | Outpatient (REF) | payer BC, SELFPAY ==
[2023-07-22 12:42] LABS: IgA 214 mg/dl (70-400)
[2023-07-22 12:50] LABS: C-Reactive Protein < 5.00 mg/L (0.0-10.00)
[2023-07-23 19:01] LABS: Endomysial IgA Antibody Titer <1:10 (<1:10)
== END ==
LOC: REG 10:46
PROVIDERS: ATTENDING PHYSICIAN Internal Medicine; FAMILY PHYSICIAN Family Medicine
DX: R10.32 Left lower quadrant pain (principal); G89.29 Other chronic pain; R19.7 Diarrhea, unspecified; K90.0 Celiac disease; R19.4 Change in bowel habit
CPT/HCPCS: 36415; 82784; 83516; 86140; 86231

== ENCOUNTER → 2023-07-23 10:53 | Outpatient (REF) | payer BC, SELFPAY | LOC: RAD 10:53 | PROVIDERS: ATTENDING PHYSICIAN Internal Medicine; FAMILY PHYSICIAN Family Medicine | DX: K90.0 Celiac disease (principal); R19.4 Change in bowel habit; R10.32 Left lower quadrant pain; G89.29 Other chronic pain; R19.7 Diarrhea, unspecified | CPT/HCPCS: 83993; 87324; 87449 ==

== ENCOUNTER → 2023-08-13 06:34 | Day surgery (SDC) | payer BC, SELFPAY | LOC: GI 06:34 | PROVIDERS: ATTENDING PHYSICIAN Internal Medicine; FAMILY PHYSICIAN Family Medicine | DX: R10.32 Left lower quadrant pain (principal); R93.3 Abnormal findings on diagnostic imaging of other parts of digestive tract; K92.1 Melena; K62.89 Other specified diseases of anus and rectum; R19.7 Diarrhea, unspecified; K44.9 Diaphragmatic hernia without obstruction or gangrene; K31.89 Other diseases of stomach and duodenum; R10.84 Generalized abdominal pain; K29.50 Unspecified chronic gastritis without bleeding; K31.A0 Gastric intestinal metaplasia, unspecified | CPT/HCPCS: 45380; 43239; 88305; 88342 ==

== ENCOUNTER → 2023-10-05 08:58 | Outpatient (REF) | payer BC, SELFPAY ==
[2023-10-05 10:51] LABS: % Basophils 1.9 % (0-2); % Eosinophils 2.8 % (0-6); % Immature Granulocytes 0.5 % (0-0.5); % Lymphocytes 42.9 % (20.5-51.1); % Neutrophils 42.9 % (42.2-75.2); Absolute Basophils 0.1 10^3/uL (0-0.2); Absolute Eosinophils 0.2 10^3/uL (0-0.7); Absolute Lymphocytes 2.5 10^3/uL (1.2-3.4); Absolute Monocytes 0.5 10^3/uL (0.1-0.6); Absolute Neutrophils 2.5 10^3/uL (1.4-6.5); Hematocrit 38.3 % (37.0-47.0); Mean Corp Hgb Conc. 33.9 g/dL (33.0-37.0); Mean Corpuscular Volume 97.2 fL (81.0-99.0); Mean Platelet Volume 10.2 fL (7.4-10.4); Nucleated Red Blood Cells % 0 %; Platelet Count 266 10^3/uL (130-400); Red Blood Cell Count 3.94 10^6/uL (4.20-5.40); Red Cell Dist. Width 12.3 % (11.5-14.5); Reticulocyte Count 1.5 % (0.4-2.8); White Blood Cell Count 5.8 10^3/uL (4.8-10.8)
[2023-10-05 11:54] LABS: Erythrocyte Sed Rate 8 mm/hour (0-20)
[2023-10-05 14:39] LABS: Hepatitis B Surface Antigen Negative (Negative)
[2023-10-05 14:45] LABS: ALT (SGPT) 42 U/L (0-35); AST (SGOT) 33 U/L (14-36); Albumin 4.4 g/dl (3.5-5.0); Alkaline Phosphatase 48 U/L (38-126); Blood Urea Nitrogen 34 mg/dl (7-17); Calcium 9.8 mg/dl (8.4-10.2); Carbon Dioxide 26 mmol/L (22-30); Chloride 109 mmol/L (98-107); Glucose 91 mg/dl (70-99); LDH 190 U/L (120-246); Potassium 4.7 mmol/L (3.5-5.1); Sodium 142 mmol/L (135-145); Total Bilirubin 0.5 mg/dl (0.2-1.3); Total Protein 6.9 g/dl (6.3-8.2); eGFR > 60.00
[2023-10-05 14:55] LABS: C-Reactive Protein < 5.00 mg/L (0.0-10.00)
[2023-10-05 14:57] LABS: Hepatitis B Core Ab, Total Negative (Negative); Hepatitis C Antibody Negative (Negative)
[2023-10-07 07:37] LABS: Quantiferon Mitogen minus NIL 9.98 IU/mL; Quantiferon NIL 0.02 IU/mL; Quantiferon Plus TB2 minus NIL 0.01 IU/mL (<=0.34); Quantiferon TB Gold Plus Negative (Negative)
[2023-10-07 08:18] LABS: Haptoglobin 50 mg/dL (30-200)
== END ==
LOC: REG 08:58
PROVIDERS: ATTENDING PHYSICIAN Internal Medicine Hematology; FAMILY PHYSICIAN Family Medicine; REFERRING PHYSICIAN Internal Medicine
DX: D69.59 Other secondary thrombocytopenia (principal); T50.905A Adverse effect of unspecified drugs, medicaments and biological substances, initial encounter; D75.89 Other specified diseases of blood and blood-forming organs; K75.9 Inflammatory liver disease, unspecified; Z22.7 Latent tuberculosis; Z51.81 Encounter for therapeutic drug level monitoring; M06.4 Inflammatory polyarthropathy
CPT/HCPCS: 36415; 80053; 83010; 83615; 83921; 85025; 85045; 85240; 85245; 85246; 85247; 85652; 86140; 86480; 86704; 86803; 87340

== ENCOUNTER → 2024-02-25 11:01 | Outpatient (REF) | payer BC, SELFPAY ==
[2024-02-25 12:51] LABS: % Basophils 1.4 % (0-2); % Immature Granulocytes 0.4 % (0-0.5); % Lymphocytes 42.9 % (20.5-51.1); % Monocytes 7.3 % (1.7-9.3); Absolute Basophils 0.1 10^3/uL (0-0.2); Absolute Eosinophils 0.3 10^3/uL (0-0.7); Absolute Lymphocytes 2.4 10^3/uL (1.2-3.4); Absolute Monocytes 0.4 10^3/uL (0.1-0.6); Absolute Neutrophils 2.4 10^3/uL (1.4-6.5); Hematocrit 40.4 % (37.0-47.0); Hemoglobin 13.3 g/dL (12.0-16.0); Mean Corp Hgb Conc. 32.9 g/dL (33.0-37.0); Mean Corpuscular Volume 97.3 fL (81.0-99.0); Mean Platelet Volume 10.4 fL (7.4-10.4); Nucleated Red Blood Cells % 0 %; Platelet Count 226 10^3/uL (130-400); Red Blood Cell Count 4.15 10^6/uL (4.20-5.40); Red Cell Dist. Width 11.9 % (11.5-14.5); White Blood Cell Count 5.6 10^3/uL (4.8-10.8)
[2024-02-25 14:04] LABS: Erythrocyte Sed Rate 8 mm/hour (0-20)
[2024-02-25 14:40] LABS: ALT (SGPT) 32 U/L (0-35); AST (SGOT) 31 U/L (14-36); Albumin 4.3 g/dl (3.5-5.0); Alkaline Phosphatase 38 U/L (38-126); Blood Urea Nitrogen 31 mg/dl (7-17); Carbon Dioxide 24 mmol/L (22-30); Chloride 105 mmol/L (98-107); Glucose 92 mg/dl (70-99); Potassium 4.5 mmol/L (3.5-5.1); Sodium 139 mmol/L (135-145); Total Bilirubin 0.3 mg/dl (0.2-1.3); Total Protein 6.8 g/dl (6.3-8.2); eGFR > 60.00
[2024-02-25 14:42] LABS: C-Reactive Protein < 5.00 mg/L (0.0-10.00)
[2024-02-25 14:59] LABS: Free T4 1.02 ng/dl (0.78-2.19); Vitamin D, 25-OH*** 27.6 ng/mL (30-80)
[2024-02-25 15:12] LABS: TSH 3.49 uIU/ml (0.47-4.68)
== END ==
LOC: REG 11:01
PROVIDERS: ATTENDING PHYSICIAN Internal Medicine; FAMILY PHYSICIAN Family Medicine; REFERRING PHYSICIAN Internal Medicine Endocrinology, Diabetes & Metabolism
DX: E89.0 Postprocedural hypothyroidism (principal); L40.50 Arthropathic psoriasis, unspecified; Z51.81 Encounter for therapeutic drug level monitoring
CPT/HCPCS: 36415; 80053; 82306; 84439; 84443; 85025; 85652; 86140

== ENCOUNTER → 2024-07-03 09:15 | Outpatient (REF) | payer BC, SELFPAY ==
[2024-07-03 10:29] LABS: % Eosinophils 3.2 % (0-6); % Immature Granulocytes 0.3 % (0-0.5); % Lymphocytes 42.3 % (20.5-51.1); % Monocytes 7.7 % (1.7-9.3); % Neutrophils 45.5 % (42.2-75.2); Absolute Basophils 0.1 10^3/uL (0-0.2); Absolute Eosinophils 0.2 10^3/uL (0-0.7); Absolute Lymphocytes 2.5 10^3/uL (1.2-3.4); Absolute Monocytes 0.5 10^3/uL (0.1-0.6); Absolute Neutrophils 2.7 10^3/uL (1.4-6.5); Hematocrit 38.9 % (37.0-47.0); Mean Corp Hgb Conc. 33.4 g/dL (33.0-37.0); Mean Corpuscular Hgb 33.1 pg (27.0-31.0); Mean Platelet Volume 10.5 fL (7.4-10.4); Nucleated Red Blood Cells % 0 %; Platelet Count 225 10^3/uL (130-400); Red Blood Cell Count 3.93 10^6/uL (4.20-5.40); Red Cell Dist. Width 11.5 % (11.5-14.5)
[2024-07-03 11:04] LABS: ALT (SGPT) 25 U/L (0-35); AST (SGOT) 20 U/L (14-36); Albumin 4.1 g/dl (3.5-5.0); Alkaline Phosphatase 40 U/L (38-126); Blood Urea Nitrogen 30 mg/dl (7-17); Calcium 9.5 mg/dl (8.4-10.2); Carbon Dioxide 25 mmol/L (22-30); Chloride 111 mmol/L (98-107); Glucose 100 mg/dl (70-99); Potassium 4.2 mmol/L (3.5-5.1); Sodium 144 mmol/L (135-145); Total Bilirubin 0.5 mg/dl (0.2-1.3); Total Protein 6.5 g/dl (6.3-8.2); eGFR > 60.00
[2024-07-03 11:05] LABS: C-Reactive Protein < 5.00 mg/L (0.0-10.00)
[2024-07-03 11:29] LABS: Free T3 2.96 pg/ml (2.77-5.27); Free T4 0.88 ng/dl (0.78-2.19)
[2024-07-03 11:39] LABS: Erythrocyte Sed Rate 1 mm/hour (0-20)
[2024-07-03 11:42] LABS: TSH 2.14 uIU/ml (0.47-4.68)
== END ==
LOC: REG 09:15
PROVIDERS: ATTENDING PHYSICIAN Internal Medicine; FAMILY PHYSICIAN Family Medicine; OTHER PHYSICIAN Internal Medicine Endocrinology, Diabetes & Metabolism
DX: M35.9 Systemic involvement of connective tissue, unspecified (principal); M06.4 Inflammatory polyarthropathy; Z51.81 Encounter for therapeutic drug level monitoring; E03.9 Hypothyroidism, unspecified
CPT/HCPCS: 80053; 84439; 84443; 84481; 85025; 85652; 86140

== ENCOUNTER → 2024-10-05 06:57 | Outpatient (REF) | payer BC, SELFPAY ==
[2024-10-05 08:20] LABS: ALT (SGPT) 29 U/L (0-35); AST (SGOT) 22 U/L (14-36); Albumin 4.3 g/dl (3.5-5.0); Alkaline Phosphatase 40 U/L (38-126); Blood Urea Nitrogen 37 mg/dl (7-17); Calcium 9.9 mg/dl (8.4-10.2); Carbon Dioxide 25 mmol/L (22-30); Chloride 112 mmol/L (98-107); Glucose 95 mg/dl (70-99); Potassium 4.3 mmol/L (3.5-5.1); Sodium 144 mmol/L (135-145); Total Protein 6.9 g/dl (6.3-8.2); eGFR 51.18
[2024-10-05 08:53] LABS: TSH 3.18 uIU/ml (0.47-4.68)
[2024-10-05 09:32] LABS: Glycohemoglobin (HgbA1c) 5.4 % (4.0-5.6)
== END ==
LOC: REG 06:57
PROVIDERS: ATTENDING PHYSICIAN Internal Medicine Hematology; FAMILY PHYSICIAN Family Medicine; OTHER PHYSICIAN Internal Medicine Endocrinology, Diabetes & Metabolism
DX: R23.3 Spontaneous ecchymoses (principal); D69.59 Other secondary thrombocytopenia; T50.905A Adverse effect of unspecified drugs, medicaments and biological substances, initial encounter; E89.0 Postprocedural hypothyroidism; R73.01 Impaired fasting glucose
CPT/HCPCS: 36415; 80053; 83036; 84443; 85240; 85246

== ENCOUNTER → 2024-10-23 15:48 | Outpatient (REF) | payer BC, SELFPAY ==
[2024-10-23 17:39] LABS: ALT (SGPT) 36 U/L (0-35); AST (SGOT) 27 U/L (14-36); Albumin 4.7 g/dl (3.5-5.0); Alkaline Phosphatase 53 U/L (38-126); Blood Urea Nitrogen 18 mg/dl (7-17); Calcium 9.4 mg/dl (8.4-10.2); Carbon Dioxide 26 mmol/L (22-30); Chloride 107 mmol/L (98-107); Glucose 89 mg/dl (70-99); Potassium 4.4 mmol/L (3.5-5.1); Sodium 139 mmol/L (135-145); Total Protein 7.3 g/dl (6.3-8.2); eGFR > 60.00
== END ==
LOC: REG 15:48
PROVIDERS: ATTENDING PHYSICIAN Family Medicine
DX: R89.9 Unspecified abnormal finding in specimens from other organs, systems and tissues (principal)
CPT/HCPCS: 36415; 80053

== ENCOUNTER → 2025-02-10 09:34 | Outpatient (REF) | payer BC, SELFPAY ==
[2025-02-10 10:30] LABS: Hematocrit 41.3 % (37.0-47.0); Hemoglobin 13.7 g/dL (12.0-16.0); Mean Corp Hgb Conc. 33.2 g/dL (33.0-37.0); Mean Corpuscular Volume 95.8 fL (81.0-99.0); Nucleated Red Blood Cells % 0 %; Platelet Count 245 10^3/uL (130-400); Red Cell Dist. Width 11.9 % (11.5-14.5)
[2025-02-10 11:04] LABS: ALT (SGPT) 23 U/L (0-35); AST (SGOT) 24 U/L (14-36); Albumin 4.7 g/dl (3.5-5.0); Alkaline Phosphatase 48 U/L (38-126); Blood Urea Nitrogen 15 mg/dl (7-17); Calcium 9.6 mg/dl (8.4-10.2); Carbon Dioxide 25 mmol/L (22-30); Chloride 105 mmol/L (98-107); Glucose 91 mg/dl (70-99); HDL Cholesterol 81 mg/dl; LDL Cholesterol, Calculated 178 mg/dl; Potassium 4.3 mmol/L (3.5-5.1); Sodium 139 mmol/L (135-145); Total Protein 7.5 g/dl (6.3-8.2); Very Low Density Lipoprotein 31 mg/dl (0-30); eGFR > 60.00
[2025-02-10 11:08] LABS: C-Reactive Protein < 5.00 mg/L (0.0-10.00)
[2025-02-10 11:25] LABS: Vitamin D, 25-OH*** 40.2 ng/mL (30-80)
[2025-02-10 11:33] LABS: Hepatitis B Surface Antigen Negative (Negative)
[2025-02-10 11:38] LABS: TSH 2.73 uIU/ml (0.47-4.68)
[2025-02-10 11:52] LABS: Hepatitis C Antibody Negative (Negative)
== END ==
LOC: REG 09:34
PROVIDERS: ATTENDING PHYSICIAN Internal Medicine; FAMILY PHYSICIAN Family Medicine; REFERRING PHYSICIAN Internal Medicine Endocrinology, Diabetes & Metabolism
DX: E55.9 Vitamin D deficiency, unspecified (principal); E03.8 Other specified hypothyroidism; E78.5 Hyperlipidemia, unspecified; K75.9 Inflammatory liver disease, unspecified; Z51.81 Encounter for therapeutic drug level monitoring; Z22.7 Latent tuberculosis
CPT/HCPCS: 36415; 80053; 80061; 82306; 84439; 84443; 85025; 85652; 86140; 86480; 86704; 86706; 86803; 87340

== ENCOUNTER → 2025-02-12 18:28 | Outpatient (REF) | payer BC, SELFPAY | LOC: MRI 3T 18:28 | PROVIDERS: ATTENDING PHYSICIAN Internal Medicine Endocrinology, Diabetes & Metabolism; FAMILY PHYSICIAN Family Medicine | DX: D35.2 Benign neoplasm of pituitary gland (principal) | CPT/HCPCS: 70553; A9575 ==

== ENCOUNTER → 2025-02-20 09:15 | Outpatient (REF) | payer BC, SELFPAY ==
[2025-02-20 10:34] LABS: Urine Character Clear (Clear)
[2025-02-20 10:49] LABS: Urine Squamous Cell >30 /LPF (Few)
[2025-02-20 10:50] LABS: Hematocrit 40.7 % (37.0-47.0); Hemoglobin 13.3 g/dL (12.0-16.0); Mean Corp Hgb Conc. 32.7 g/dL (33.0-37.0); Mean Corpuscular Volume 96.9 fL (81.0-99.0); Nucleated Red Blood Cells % 0 %; Platelet Count 259 10^3/uL (130-400); Red Cell Dist. Width 12.4 % (11.5-14.5)
[2025-02-20 10:50] LABS: Urine Red Blood Cell 0-2 /HPF (0-2)
[2025-02-20 10:54] LABS: ALT (SGPT) 41 U/L (0-35); AST (SGOT) 26 U/L (14-36); Albumin 5.0 g/dl (3.5-5.0); Alkaline Phosphatase 45 U/L (38-126); Blood Urea Nitrogen 22 mg/dl (7-17); Calcium 9.8 mg/dl (8.4-10.2); Carbon Dioxide 26 mmol/L (22-30); Chloride 107 mmol/L (98-107); Glucose 89 mg/dl (70-99); Potassium 4.2 mmol/L (3.5-5.1); Sodium 141 mmol/L (135-145); Total Protein 8.3 g/dl (6.3-8.2); eGFR > 60.00
[2025-02-20 10:57] LABS: C-Reactive Protein < 5.00 mg/L (0.0-10.00)
[2025-02-20 11:32] LABS: Ferritin 32.6 ng/ml (11.1-264.0)
[2025-02-21 11:23] LABS: Syphilis/T. pallidum Ab Reflex Negative (Negative)
[2025-02-21 13:21] LABS: Lyme Antibody Screen, EIA Negative (Negative)
[2025-02-21 14:11] LABS: Rheumatoid Agglutinin Less Than 10 IU (<10 IU)
[2025-02-21 19:52] LABS: HLA-B27 Negative (Negative)
[2025-02-22 08:20] LABS: ANA, IgG Reflex to HEp-2 None Detected (None Detected)
[2025-02-22 18:19] LABS: Serine Protease-3, IgG 1 AU/mL (0-19)
[2025-02-23 01:02] LABS: Albumin 4.79 g/dL (3.75-5.01); Free Kappa Light Chains,Quant 14.29 mg/L (3.30-19.40); Free Lambda Light Chains,Quant 14.12 mg/L (5.71-26.30); Immunofixation Electrophoresis IFE Done; Kappa/Lambda Fr Light Ratio 1.01 (0.26-1.65); Total Protein-Electrophoresis 7.3 g/dL (6.3-8.2)
== END ==
LOC: RAD 09:15
PROVIDERS: ATTENDING PHYSICIAN Internal Medicine; FAMILY PHYSICIAN Family Medicine
DX: E55.9 Vitamin D deficiency, unspecified (principal); M10.9 Gout, unspecified; M25.9 Joint disorder, unspecified; E06.3 Autoimmune thyroiditis; A69.20 Lyme disease, unspecified; M06.9 Rheumatoid arthritis, unspecified; K90.0 Celiac disease; K75.9 Inflammatory liver disease, unspecified; M60.9 Myositis, unspecified; M35.9 Systemic involvement of connective tissue, unspecified; E07.9 Disorder of thyroid, unspecified; G62.9 Polyneuropathy, unspecified; M06.4 Inflammatory polyarthropathy; D47.2 Monoclonal gammopathy; M32.9 Systemic lupus erythematosus, unspecified; M34.9 Systemic sclerosis, unspecified; D89.9 Disorder involving the immune mechanism, unspecified; Z51.81 Encounter for therapeutic drug level monitoring; Z15.89 Genetic susceptibility to other disease; L04.9 Acute lymphadenitis, unspecified; D68.61 Antiphospholipid syndrome; K75.4 Autoimmune hepatitis; M45.9 Ankylosing spondylitis of unspecified sites in spine; M06.1 Adult-onset Still's disease; D89.1 Cryoglobulinemia; Z22.7 Latent tuberculosis; I77.82 Antineutrophilic cytoplasmic antibody [ANCA] vasculitis; D89.84 IgG4-related disease; Z21 Asymptomatic human immunodeficiency virus [HIV] infection status; A53.9 Syphilis, unspecified; R06.02 Shortness of breath
CPT/HCPCS: 36415; 71046; 80053; 81003; 81015; 82164; 82652; 82728; 82784; 82787; 83516; 83521; 84155; 84165; 84443; 85025; 85652; 86038; 86140; 86160; 86334; 86430; 86618; 86780; 86812; 87086; 87389